=== PATIENT | male | born 1980 | race Caucasian/White ===

== ENCOUNTER 2023-04-04 02:30 | Outpatient (CLI) | payer MEDICAID, SELFPAY ==
--- NOTE | 2023-04-04 08:00 | DI.MRI_ITS ---
Exam(s) MR LUMBAR SPINE WO EXAM: MR LUMBAR SPINE WO CLINICAL HISTORY: LBP with weakness to the right leg (DF of ankle),RADICULOPATHY,M54.16. TECHNIQUE: Multiplanar multisequence MRI of the Lumbar spine was performed. COMPARISON: Prior outside lumbar spine MRI performed November 2012. There are no plain films availa ble time this MRI interpretation. 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 There is no evidence of conus mass nor subjacent clumping of intra thecal nerve roots to suggest arachnoiditis. The distal thecal sac appears unremarkable.There is no evidence of Tarlov intrasacral cysts nor other significant findings within the sacral canal Bones:There are no fractures nor ominous osseous lesions in the lumbar vertebral bodies and visualize d sacrum. 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 Smaller hemangiomas are noted in L2 vertebral darlin dy as well as L1. With respect to the individual levels... T12-L1: Unremarkable L1-2: There has been some disc height loss and development of anterior osteophytes since 2013. Howev er, there is no evidence of significant disc herniation or central canal stenosis. Also no foraminal stenosis. No facet arthropathy. L2-3: This level also exhibits disc height loss since the prior MRI scan 2012. There is mild symmetr ical annular bulging but without a significant disc herniation. Central canal dimensions are lower n ormal. No foraminal stenosis. No facet arthropathy. L3-4: Mild disc height loss. Mild retrolisthesis L3 upon L4 but no significant disc herniation. Yuliana tral canal dimensions are lower normal. Mild annular bulging noted in the floor of both exiting neur al foramina. No distinct disc herniations. No prominent foraminal stenosis. L4-5: Relatively preserved disc height, with mild disc space narrowing on the right side. There is s ymmetrical annular bulging at this level which slightly flattens the anterior thecal sac. Central ca nal dimensions are lower normal. There is no distinct focal disc herniation. There is some annular bulging into the floor of the exiting neural foramina bilaterally, with mild foraminal stenosis on th e left side and no foraminal stenosis on the right side. There is no prominent facet arthropathy at this level. L5-S1: This level exhibits advanced uniform disc space narrowing and Modic type 2 sub endplate fatty marrow changes, with slight increase in from 2013. There has been further disc height loss when comp ared 1013 at this level. There is no posterior disc herniation and the central canal dimensions at t his level are within normal limits. On the left side there is no significant foraminal stenosis. On the right side there is mild-moderate foraminal stenosis due to more prominent posterior annular bul ging and overlying posterior osteophytic ridging extending into the exiting right neural foramen at t his level. The exiting nerve root is slightly impinged between the overlying right L5 pedicle and th e subjacent annular bulging-posterior bony ridging. There are mild degenerative changes in the facet joints at this level. Soft tissues: paraspinal soft tissues appear unremarkable. IMPRESSION: 1. Compared to the prior MRI scan of 2013 there has been progression of disc space narrowing at multi ple levels as described above. There are no prominent disc herniations nor central spinal canal sten osis. However, there is some asymmetric foraminal stenosis noted, this being most evident on the rig ht-sided L5-S1 level as described above. This is related to a combination of advanced disc height lo ss (vertical foraminal stenosis) as well as posterior annular bulging and osteophytic ridging which i s more prominent on the right side at this level. 2. Increasing size and number of benign-appearing bone lesions in the vertebral arteries which have t he appearance of benign intraosseous hemangiomas. The largest of these is on the right side of the L 4 vertebral body, this nonexpansile finding measuring 17 x 14 x 15 mm. DATA REPOSITORY:
== END 2023-04-04 02:50 ==
LOC: DI 02:31
PROVIDERS: PCP Family Medicine; Visit Provider Preventive Medicine Occupational Medicine
DX: M54.16 Radiculopathy, lumbar region (principal); S34.114A Complete lesion of L4 level of lumbar spinal cord, initial encounter; X58.XXXA Exposure to other specified factors, initial encounter
CPT/HCPCS: 72148